=== PATIENT | male | born 1960 | race Caucasian/White ===

== ENCOUNTER → 2016-04-23 13:53 | Emergency (ER) | payer OTHER ==
[~2016-04-23 13:53] MED LIST: Ketorolac INJ* 60 MG/2 ML VIAL IM ONE
[2016-04-23 14:04] VITALS: BP 143/89
--- NOTE | 2016-04-23 15:09 | ED ---
Throat Pain/Nasal Congestion - HPI Summary HPI Summary: Patient has a broken lower molar that became painful four days ago. He thought it would improve but it has become progressively more painful. He went to [facility] yesterday and was given pain medication and told to follow-up with his dentist. He has tried using the Percocet he was given, as well as some old hydrocodone he had at home, without relief. He denies fever or chills. He has also tried ora -gel and ibuprofen. - History of Current Complaint Chief Complaint: EDDentalPain Time Seen by Provider: 04/23/16 14:34 Hx Obtained From: Patient Onset/Duration: Gradual Onset Severity: Severe Associated Signs And Symptoms: Positive: Negative Cough: None - Allergies/Home Medications Allergies/Adverse Reactions: Allergies Allergy/AdvReac Type Severity Reaction Status Date / Time No Known Allergies Allergy Verified 04/23/16 13:58 PMH/Surg Hx/FS Hx/Imm Hx Cardiovascular History: Reports: Hx Hypertension - Surgical History Surgery Procedure, Year, and Place: sebaceous cysts removed Infectious Disease History: No Infectious Disease History: Denies: History Other Infectious Disease, Traveled Outside the in Last 30 Days - Family History Known Family History: Positive: Cardiac Disease, Hypertension - Social History Occupation: Employed Full-time Lives: With Family Alcohol Use: Rare Substance Use Type: Reports: None Smoking Status (MU): Former Smoker Review of Systems Negative: Fever, Chills Positive: Dental Pain. Negative: Sore Throat, Ear Ache All Other Systems Reviewed And Are Negative: Yes Physical Exam Triage Information Reviewed: Yes Vital Signs On Initial Exam: Initial Vitals Temp Pulse Resp BP Pulse Ox 100.4 F 86 18 143/89 100 04/23/16 13:58 04/23/16 13:58 04/23/16 13:58 04/23/16 13:58 04/23/16 13:58 Vital Signs Reviewed: Yes Appearance: Positive: Well-Appearing, Well-Nourished, Pain Distress Skin: Positive: Warm, Skin Color Reflects Adequate Perfusion, Dry, Soft Head/Face: Positive: Normal Head/Face Inspection Eyes: Positive: EOMI, CINDY, Conjunctiva Clear ENT: Positive: Hearing grossly normal, Pharynx normal Dental: Positive: Percussion Tenderness @ - left lower molar, Gross Decay/ Caries @ - left lower molar, Dental Fracture @ - left lower molar Neck: Positive: Supple, Nontender, No Lymphadenopathy Respiratory/Lung Sounds: Positive: Breath Sounds Present Cardiovascular: Positive: RRR Neurological: Positive: Sensory/Motor Intact, Alert, Oriented to Person Place, Time, NV Bundle Intact Distally Psychiatric: Positive: Affect/Mood Appropriate AVPU Assessment: Alert Diagnostics - Vital Signs Vital Signs Temp Pulse Resp BP Pulse Ox 04/23/16 13:58 100.4 F 86 18 143/89 100 - Laboratory Lab Statement: Any lab studies that have been ordered have been reviewed, and results considered in the medical decision making process. Re-Evaluation - Re-Evaluation First Eval Re-Evaluation Time: 15:30 Change: Improved Comment: patient pain has decreased with Toradol and oral lidocaine. He declined dental nerve block. EENT Course/Dx - Differential Diagnoses Differential Diagnoses: Dental Abscess, Dental Caries, Fractured Tooth, Odontogenic Pain, Periodontic Abscess, Periodontic Disease - Diagnoses Provider Diagnoses: Pain, dental Discharge - Discharge Plan Condition: Stable Disposition: HOME Patient Education Materials: Toothache (ED) Referrals: Bozena Morgan MD [Primary Care Provider] - Additional Instructions: Please call your dentist [facility] for an appointment tomorrow. Use your pain mediation in combination with the oral get provided.
== END | disposition home or self-care (01) ==
LOC: ED 13:53
DX: K08.89 Other specified disorders of teeth and supporting structures (principal); I10 Essential (primary) hypertension; Z87.891 Personal history of nicotine dependence
CPT/HCPCS: 96372; 99281; J1885

== ENCOUNTER 2018-03-08 14:29 | Observation (INO) | payer BC, OTHER ==
[2018-03-08 15:34] LABS: ABS Basophils 0 10^3/ul (0-0.2); ABS Eosinophils 0.1 10^3/ul (0-0.6); ABS Lymphocytes 1.1 10^3/ul (1.0-4.8); ABS Monocytes 0.8 10^3/ul (0-0.8); ABS Neutrophils 5.5 10^3/ul (1.5-7.7); ABS Nucleated RBC 0 10^3/ul; Eosinophil % 1.4 %; Hematocrit 43 % (42-52); Hemoglobin 14.4 g/dl (14.0-18.0); Mean Corpuscular HGB Conc 34 g/dl (31-36); Mean Corpuscular Hemoglobin 29 pg (27-31); Mean Corpuscular Volume 87 fL (80-94); Mean Platelet Volume 9.2 fL (7.4-10.4); Nucleated Red Blood Cells % 0; Platelet Count 227 10^3/ul (150-450); Red Blood Count 4.93 10^6/ul (4.00-5.40); Red Cell Distribution Width 14 % (10.5-15); White Blood Count 7.5 10^3/ul (3.5-10.8)
[2018-03-08 15:41] LABS: Activated Partial Thrombo Time 30.1 seconds (26.0-36.3)
[2018-03-08 15:52] LABS: Albumin 4.2 g/dL (3.2-5.2); Albumin/Globulin Ratio 1.5 (1-3); BUN/Creatinine Ratio 23.2 (8-20); EGFR Non-African American 81.7 (>60); Globulin 2.8 g/dL (2-4); Potassium 4.3 mmol/L (3.5-5.0); Total Bilirubin 0.5 mg/dL (0.2-1.0)
[2018-03-08 16:15] LABS: Urine Appearance Clear; Urine Bilirubin Negative (Negative); Urine Blood Negative (Negative); Urine Color Amber; Urine Glucose Negative (Negative); Urine Ketones Negative (Negative); Urine Nitrite Negative (Negative); Urine Protein Negative (Negative); Urine Specific Gravity 1.019 (1.010-1.030); Urine Urobilinogen Negative (Negative)
[2018-03-08 16:39] LABS: TSH (Thyroid Stimulating Horm) 0.87 mcIU/mL (0.34-5.60)
[2018-03-08 16:43] LABS: Free T4 0.92 ng/dL (0.61-1.12)
[2018-03-08] MEDS ORDERED: Acetaminophen TAB* 325 MG PO PRN (17:06)
[2018-03-08] MEDS ORDERED: Ondansetron INJ* 2 MG/ML VIAL IV PRN (17:06)
[2018-03-08] MEDS ORDERED: Nitroglycerin TAB 0.4 MG* 0.4 MG TAB SL PRN (17:06)
--- NOTE | 2018-03-08 17:08 | ED ---
Palpitations / Dysrhythmia - HPI Summary HPI Summary: The pt is a 57 year old male who is presenting to the [facility] via ambulance with a chief complaint of palpitations. The pt earlier today checked his pulse using an Iphone cira and stated that his pulse rate was 115 to 120 bpm. He later checked the pulses by placing his fingers to his neck and felt as if his pulse rate was high. He states that he was feeling "off" today in general as well as "jittery." The pt also reports of dizziness and fatigue. He has taken aspirin and denies any history of a blood clot. 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 Both of his occupations require the patient to "sit down" and be relatively inactive. SHx involves no alcohol use and no tobacco use. Medications were reported and stated to be for the patient's HTN. He denies DM, high cholesterol levels and hx of [place]. Symptoms are aggravated by nothing and alleviated by nothing. The pain is reported to be 0/10. - History of Current Complaint Chief Complaint: EDChestPainROMI Time Seen by Provider: 03/08/18 15:01 Hx Obtained From: Patient Onset/Duration: Lasting Hours - since earlier 03/08/18 Character: Fast Aggravating: Nothing Alleviating: Nothing Associated Signs & Symptoms: Dizzy - Allergy/Home Medications Allergies/Adverse Reactions: Allergies Allergy/AdvReac Type Severity Reaction Status Date / Time No Known Allergies Allergy Verified 04/23/16 13:58 Home Medications: Home Medications Tamsulosin CAP* [Flomax CAP*] 0.4 mg PO DAILY 03/08/18 [History Confirmed ] PMH/Surg Hx/FS Hx/Imm Hx Endocrine/Hematology History: Reports: Other Endocrine/Hematological Disorders - Negative Hypercholesteremia Denies: Hx Diabetes Cardiovascular History: Reports: Hx Hypertension Denies: Hx Myocardial Infarction Opthamlomology History: Denies: Hx Legally Blind EENT History: Denies: Hx Deafness - Surgical History Surgery Procedure, Year, and Place: sebaceous cysts removed Infectious Disease History: No Infectious Disease History: Denies: History Other Infectious Disease, Traveled Outside the [place] in Last 30 Days - Family History Known Family History: Positive: Cardiac Disease, Hypertension - Social History Occupation: Employed Full-time Alcohol Use: Rare Substance Use Type: Reports: None Smoking Status (MU): Former Smoker Review of Systems Positive: Fatigue Eyes: Negative ENT: Negative Positive: Palpitations Respiratory: Negative Gastrointestinal: Negative Genitourinary: Negative Musculoskeletal: Negative Skin: Negative Neurological: Other - Dizziness Psychological: Normal All Other Systems Reviewed And Are Negative: Yes Physical Exam - Summary Physical Exam Summary: GENERAL: Patient is a well-developed and nourished Male who is lying comfortable in the stretcher. Patient is not in any acute respiratory distress. HEAD AND FACE: Normocephalic EYES: PERRLA, EOMI x 2. EARS: Hearing grossly intact. MOUTH: Oropharynx within normal limits. NECK: Supple, trachea is midline, no adenopathy, no JVD, no carotid bruit. CHEST: Symmetric, no tenderness at palpation LUNGS: Clear to auscultation bilaterally. No wheezing or crackles. CVS: Regular rate and rhythm, S1 and S2 present, no murmurs or gallops appreciated. ABDOMEN: Soft, non-tender. Bowel sounds are normal. No abdominal abnormal pulsations. EXTREMITIES: Full ROM in all major joints, no edema, no cyanosis or clubbing. NEURO: Alert and oriented x 3. No acute neurological deficits. Speech is normal and follows commands. SKIN: Dry and warm Triage Information Reviewed: Yes Vital Signs On Initial Exam: Initial Vitals Temp Pulse Resp BP Pulse Ox 98.5 F 103 15 142/99 97 03/08/18 14:42 03/08/18 14:42 03/08/18 14:42 03/08/18 14:42 03/08/18 14:42 Vital Signs Reviewed: Yes Diagnostics - Vital Signs Vital Signs Temp Pulse Resp BP Pulse Ox 03/08/18 15:43 86 23 140/95 98 03/08/18 15:12 94 18 148/105 99 03/08/18 15:00 90 19 97 03/08/18 14:43 89 22 142/99 97 03/08/18 14:42 98.5 F 103 15 142/99 97 - Laboratory Lab Results: Lab Results 03/08/18 03/08/18 03/08/18 Range/Units 15:24 15:24 15:24 WBC 7.5 (3.5-10.8) 10^3/ul RBC 4.93 (4.00-5.40) 10^6/ul Hgb 14.4 (14.0-18.0) g/dl Hct 43 (42-52) % MCV 87 (80-94) fL MCH 29 (27-31) pg MCHC 34 (31-36) g/dl RDW 14 (10.5-15) % Plt Count 227 (150-450) 10^3/ul MPV 9.2 (7.4-10.4) fL Neut % (Auto) 73.4 % Lymph % (Auto) 14.0 % [place] % (Auto) 10.6 % Eos % (Auto) 1.4 % Baso % (Auto) 0.6 % Absolute Neuts (auto) 5.5 (1.5-7.7) 10^3/ul Absolute Lymphs (auto) 1.1 (1.0-4.8) 10^3/ul Absolute Monos (auto) 0.8 (0-0.8) 10^3/ul Absolute Eos (auto) 0.1 (0-0.6) 10^3/ul Absolute Basos (auto) 0 (0-0.2) 10^3/ul Absolute Nucleated RBC 0 10^3/ul Nucleated RBC % 0 APTT (26.0-36.3) seconds D-Dimer, Quantitative (Less Than 230) ng/mL Sodium 139 (135-145) mmol/L Potassium 4.3 (3.5-5.0) mmol/L Chloride 105 (101-111) mmol/L Carbon Dioxide 30 (22-32) mmol/L Anion Gap 4 (2-11) mmol/L BUN 22 (6-24) mg/dL Creatinine 0.95 (0.67-1.17) mg/dL Est GFR ( Amer) 98.9 (>60) Est GFR (Non-Af Amer) 81.7 (>60) BUN/Creatinine Ratio 23.2 H (8-20) Glucose 109 H (70-100) mg/dL Lactic Acid 1.2 (0.5-2.0) mmol/L Calcium 9.0 (8.6-10.3) mg/dL Total Bilirubin 0.50 (0.2-1.0) mg/dL AST 19 (13-39) U/L ALT 27 (7-52) U/L Alkaline Phosphatase 57 (34-104) U/L Troponin I 0.02 (<0.04) ng/mL B-Natriuretic Peptide (<=100) pg/mL Total Protein 7.0 (6.4-8.9) g/dL Albumin 4.2 (3.2-5.2) g/dL Globulin 2.8 (2-4) g/dL Albumin/Globulin Ratio 1.5 (1-3) TSH (0.34-5.60) mcIU/mL Free T4 (0.61-1.12) ng/dL Urine Color Urine Appearance Urine pH (5-9) Ur Specific [place] (1.010-1.030) Urine Protein (Negative) Urine Ketones (Negative) Urine Blood (Negative) Urine Nitrate (Negative) Urine Bilirubin (Negative) Urine Urobilinogen (Negative) Ur Leukocyte Esterase (Negative) Urine Glucose (Negative) 03/08/18 03/08/18 03/08/18 Range/Units 15:24 15:25 15:25 WBC (3.5-10.8) 10^3/ul RBC (4.00-5.40) 10^6/ul Hgb (14.0-18.0) g/dl Hct (42-52) % MCV (80-94) fL MCH (27-31) pg MCHC (31-36) g/dl RDW (10.5-15) % Plt Count (150-450) 10^3/ul MPV (7.4-10.4) fL Neut % (Auto) % Lymph % (Auto) % [place] % (Auto) % Eos % (Auto) % Baso % (Auto) % Absolute Neuts (auto) (1.5-7.7) 10^3/ul Absolute Lymphs (auto) (1.0-4.8) 10^3/ul Absolute Monos (auto) (0-0.8) 10^3/ul Absolute Eos (auto) (0-0.6) 10^3/ul Absolute Basos (auto) (0-0.2) 10^3/ul Absolute Nucleated RBC 10^3/ul Nucleated RBC % APTT 30.1 (26.0-36.3) seconds D-Dimer, Quantitative < 200 (Less Than 230) ng/mL Sodium (135-145) mmol/L Potassium (3.5-5.0) mmol/L Chloride (101-111) mmol/L Carbon Dioxide (22-32) mmol/L Anion Gap (2-11) mmol/L BUN (6-24) mg/dL Creatinine (0.67-1.17) mg/dL Est GFR ( Amer) (>60) Est GFR (Non-Af Amer) (>60) BUN/Creatinine Ratio (8-20) Glucose (70-100) mg/dL Lactic Acid (0.5-2.0) mmol/L Calcium (8.6-10.3) mg/dL Total Bilirubin (0.2-1.0) mg/dL AST (13-39) U/L ALT (7-52) U/L Alkaline Phosphatase (34-104) U/L Troponin I (<0.04) ng/mL B-Natriuretic Peptide 18 (<=100) pg/mL Total Protein (6.4-8.9) g/dL Albumin (3.2-5.2) g/dL Globulin (2-4) g/dL Albumin/Globulin Ratio (1-3) TSH 0.87 (0.34-5.60) mcIU/mL Free T4 0.92 (0.61-1.12) ng/dL Urine Color Urine Appearance Urine pH (5-9) Ur Specific [place] (1.010-1.030) Urine Protein (Negative) Urine Ketones (Negative) Urine Blood (Negative) Urine Nitrate (Negative) Urine Bilirubin (Negative) Urine Urobilinogen (Negative) Ur Leukocyte Esterase (Negative) Urine Glucose (Negative) 03/08/18 Range/Units 15:57 WBC (3.5-10.8) 10^3/ul RBC (4.00-5.40) 10^6/ul Hgb (14.0-18.0) g/dl Hct (42-52) % MCV (80-94) fL MCH (27-31) pg MCHC (31-36) g/dl RDW (10.5-15) % Plt Count (150-450) 10^3/ul MPV (7.4-10.4) fL Neut % (Auto) % Lymph % (Auto) % [place] % (Auto) % Eos % (Auto) % Baso % (Auto) % Absolute Neuts (auto) (1.5-7.7) 10^3/ul Absolute Lymphs (auto) (1.0-4.8) 10^3/ul Absolute Monos (auto) (0-0.8) 10^3/ul Absolute Eos (auto) (0-0.6) 10^3/ul Absolute Basos (auto) (0-0.2) 10^3/ul Absolute Nucleated RBC 10^3/ul Nucleated RBC % APTT (26.0-36.3) seconds D-Dimer, Quantitative (Less Than 230) ng/mL Sodium (135-145) mmol/L Potassium (3.5-5.0) mmol/L Chloride (101-111) mmol/L Carbon Dioxide (22-32) mmol/L Anion Gap (2-11) mmol/L BUN (6-24) mg/dL Creatinine (0.67-1.17) mg/dL Est GFR ( Amer) (>60) Est GFR (Non-Af Amer) (>60) BUN/Creatinine Ratio (8-20) Glucose (70-100) mg/dL Lactic Acid (0.5-2.0) mmol/L Calcium (8.6-10.3) mg/dL Total Bilirubin (0.2-1.0) mg/dL AST (13-39) U/L ALT (7-52) U/L Alkaline Phosphatase (34-104) U/L Troponin I (<0.04) ng/mL B-Natriuretic Peptide (<=100) pg/mL Total Protein (6.4-8.9) g/dL Albumin (3.2-5.2) g/dL Globulin (2-4) g/dL Albumin/Globulin Ratio (1-3) TSH (0.34-5.60) mcIU/mL Free T4 (0.61-1.12) ng/dL Urine Color Isabel Urine Appearance Clear Urine pH 7.0 (5-9) Ur Specific [place] 1.019 (1.010-1.030) Urine Protein Negative (Negative) Urine Ketones Negative (Negative) Urine Blood Negative (Negative) Urine Nitrate Negative (Negative) Urine Bilirubin Negative (Negative) Urine Urobilinogen Negative (Negative) Ur Leukocyte Esterase Negative (Negative) Urine Glucose Negative (Negative) Result Diagrams: 03/09/18 05:17 03/09/18 05:17 Lab Statement: Any lab studies that have been ordered have been reviewed, and results considered in the medical decision making process. - Radiology Chest X-ray Radiology Interpretation Completed By: Radiologist Summary of Radiographic Findings: CXR reveals, per radiologist, NO ACTIVE CARDIOPULMONARY DISEASE. ED physician has reviewed this radiology report. - EKG 1537 Cardiac Rate: NL - 86 bpm EKG Rhythm: Sinus Rhythm Summary of EKG Findings: EKG reveals at 1537: 86 bpm NSR. Early R wave transition Course/Dx - Course Course Of Treatment: The pt is a 57 year old male who is presenting to the [facility] with a chief complaint of heart palpitations. Lab results revealed unremarkable findings. D-dimer was normal. The workup was unremarkable as well. He received a Chest X-ray and EKG as well in the [facility]. We consulted Dr. Briseno and he accepts patient care at 1612 due to the patients risk factors. The dx will be ACS. We discussed the results and the plan with the patient and he agrees with the plan. The patient will be admitted to the [facility]. - Diagnoses Provider Diagnoses: ACS (acute coronary syndrome) - Physician Notifications Discussed Care Of Patient With: John Briseno - Accepts Patient Care Time Discussed With Above Provider: 16:12 Instructed by Provider To: Admit As Observation Discharge - Sign-Out/Discharge Documenting (check all that apply): Patient Departure - Admitted to the [facility] - Discharge Plan Condition: Stable Disposition: ADMITTED TO [facility] - Billing Disposition and Condition Condition: STABLE Disposition: Admitted to [facility] - Attestation Statements Document Initiated by Huber: Yes Documenting Scribe: Doc Kim Provider For Whom Lexiiibe is Documenting (Include Credential): Dr. Mireille Shultzibdale Attestation: Doc Ball scribed for Dr. Mireille Castillo on 03/09/18 at 0919. Scribe Documentation Reviewed: Yes Provider Attestation: The documentation as recorded by the Doc hamm accurately reflects the service I personally performed and the decisions made by , Dr. Mireille Castillo Status of Scribe Document: Viewed
--- NOTE | 2018-03-08 19:38 | HP ---
CC: Dr. Bozena Morgan * ADMISSION HISTORY AND PHYSICAL: DATE OF ADMISSION: 03/08/18. PRIMARY CARE PROVIDER: Dr. Bozena Morgan. MY ATTENDING WHILE IN THE HOSPITAL: Dr. John Briseno.* (DICTATED BY MELA CORONEL) CHIEF COMPLAINT: Palpitations, chest pain. HISTORY OF PRESENT ILLNESS: Mr. Mora is a 57-year-old male with past medical history significant only for hypertension and BPH, who was in his normal state of health this afternoon when suddenly he started developing a feeling of palpitations, which was associated with sweating, presyncope, and slight chest tightness with possible slight shortness of breath as well. 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 The patient had another episode like this approximately 1 week ago where he was just walking in the mall and his heart began to race with his blood pressure going up to about 130. The patient states he did the same thing and his heart rate was also at 130 at this time, but this episode was much more severe. The patient has not had any other episodes like this before. The patient has had episodes of feeling lightheaded while golfing during the summer. The patient has been working every day for several months now and feels like his stress level is pretty high. 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 The patient has no other recent illnesses. No sick contacts. No fevers, chills, nausea, vomiting, abdominal pain, diarrhea or dysuria. The patient is currently asymptomatic and is not feeling any palpitations. Due to concern for chest pain and possible arrhythmia, we were asked to evaluate for admission. The patient denies any orthopnea or swelling in his legs. The patient has noticed a slight decrease in his exercise tolerance, but has no real functional limitations. PAST MEDICAL HISTORY: Hypertension and BPH. PAST SURGICAL HISTORY: None. MEDICATIONS: 1. Lisinopril 10 mg p.o. daily. 2. Amlodipine 10 mg p.o. daily. 3. Flomax 0.4 mg p.o. daily. ALLERGIES: No known drug allergies. FAMILY HISTORY: The patient's mother of CHF at age 85. The patient's father in car accident when he was young. The patient's sister is in good health and alive. SOCIAL HISTORY: The patient never smoked, drank or used illicit drugs. 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 The patient is and has 2 children. REVIEW OF SYSTEMS: A 14-point review of systems has been reviewed and is negative except as above in the HPI. PHYSICAL EXAMINATION GENERAL: The patient is a 57-year-old male who appears stated age, sitting comfortably in bed, in no acute distress. VITAL SIGNS: At the time of evaluation, temperature 98.5, pulse rate 86, respiratory rate 23, oxygen saturation 98% on room air, blood pressure 140/95. HEENT: Head normocephalic, atraumatic. Sclerae anicteric. No conjunctival injection. Nasal mucosa moist. Oral mucosa moist. No oropharyngeal erythema, discharge or exudate. NECK: Supple, nontender. No lymphadenopathy, no carotid bruits auscultated, no JVD. RESPIRATORY: Clear to auscultation bilaterally. No wheezes, rales or rhonchi. Good air exchange bilaterally. CARDIAC: Regular rate and rhythm. No clicks, murmurs, gallops or rubs. Pulses 2+ in the bilateral dorsalis pedis, posterior tibialis, and radial areas. No bilateral lower extremity edema noted. No bilateral calf tenderness. ABDOMEN: Soft, nontender, and nondistended. Bowel sounds present and normoactive in all 4 quadrants. No hepatosplenomegaly. No abdominal bruits auscultated. No hepatojugular reflux. GENITOURINARY: No suprapubic or CVA tenderness. SKIN: Clean, dry, and intact. No rash. NEURO: Cranial nerves II through XII intact. No focal deficits. Alert and oriented x3. PSYCHIATRIC: Pleasant and cooperative. DIAGNOSTIC STUDIES/LAB DATA: White blood cell count 7.5, hemoglobin 14.3, platelet count 227,000. D-dimer less than 200. Sodium 139, potassium 4.3, chloride 105, carbon dioxide 23, anion gap 4, BUN 22, creatinine 0.95, glucose 109, lactic acid 1.2, calcium 9.0. Bilirubin 0.5, AST 19, ALT 27, alkaline phosphatase 57. Troponin I 0.02, BNP 18, protein 7.0, albumin 4.2, globulin 2.8 , TSH 0.87, free T4 of 0.92. Urine unremarkable. Studies: EKG shows normal sinus rhythm. No ST segment changes, rate of 86, QTc of 397. No hypertrophy or enlargement. Compared to previous exam, there are no previous changes. Chest x-ray read as no acute cardiopulmonary disease. ASSESSMENT AND PLAN/IMPRESSION: Mr. Mora is a 57-year-old male with past medical history significant for hypertension and benign prostatic hypertrophy, who presents to the emergency department with an hour and a half of palpitations today with associated chest pain and mild shortness of breath, which is now resolved. The patient is currently asymptomatic. Due to concern for arrhythmia and chest pain, the patient will be admitted to the hospital for rule out myocardial infarction and telemetry monitoring. 1. Palpitations, chest pain. The patient very likely had some form of tachyarrhythmia. The patient confirmed his own blood pressure around 130 while this was happening. The patient had associated chest pain. It is unclear whether the patient had ischemia causing tachyarrhythmia or tachyarrhythmia possibly causing ischemia. The patient will have rule out troponins. The patient will have a repeat EKG in the morning. The patient will have a lipid profile and hemoglobin A1c for risk stratification. The patient should at some point have a stress test, but this need not be done inpatient. The patient has a MARQUES Risk Score of 0. The patient should very likely have a long-term monitor unless his arrhythmia is able to be captured while he is in the hospital. The patient will be monitored on telemetry. The patient will be continued on his home antihypertensives. There is no indication for changing to a rate control agent at this point. There is no indication for anticoagulation as there is no confirmation this is atrial fibrillation. 2. Hypertension. Continue lisinopril and amlodipine. 3. Benign prostatic hypertrophy. Continue tamsulosin. 4. DVT prophylaxis. The patient is a low risk. The patient will have SCDs. 5. FEN. The patient will have a regular unrestricted diet. The patient is not on any fluids. 6. Disposition. The patient will be on observation. TIME SPENT: Approximately 60 minutes were spent on the admission of this patient, 30 of which was spent [id number] with the patient obtaining history and physical and discussing treatment plan. Plan was discussed with my attending, Dr. Darren Briseno, and he is in agreement. MELA CORONEL [id number]/[facility] #: [id number] ALBERTO
[2018-03-09 05:35] LABS: ABS Basophils 0 10^3/ul (0-0.2); ABS Eosinophils 0.2 10^3/ul (0-0.6); ABS Lymphocytes 1.5 10^3/ul (1.0-4.8); ABS Monocytes 0.8 10^3/ul (0-0.8); ABS Neutrophils 3.6 10^3/ul (1.5-7.7); ABS Nucleated RBC 0 10^3/ul; Eosinophil % 2.6 %; Hematocrit 42 % (42-52); Hemoglobin 14.3 g/dl (14.0-18.0); Lymphocyte % 24.3 %; Mean Corpuscular HGB Conc 34 g/dl (31-36); Mean Corpuscular Hemoglobin 30 pg (27-31); Mean Corpuscular Volume 86 fL (80-94); Mean Platelet Volume 8.9 fL (7.4-10.4); Nucleated Red Blood Cells % 0.1; Platelet Count 214 10^3/ul (150-450); Red Blood Count 4.86 10^6/ul (4.00-5.40); Red Cell Distribution Width 14 % (10.5-15)
[2018-03-09 05:50] LABS: BUN/Creatinine Ratio 19.5 (8-20); EGFR Non-African American 90.4 (>60); Magnesium 2.2 mg/dL (1.9-2.7); Potassium 4.1 mmol/L (3.5-5.0)
[2018-03-09] MEDS ORDERED: amLODIPine TAB* 5 MG PO SCH (09:00)
[2018-03-09] MEDS: Aspirin EC TAB* 81 MG TAB.EC PO SCH (09:30)
[2018-03-09] MEDS: amLODIPine TAB* 5 MG PO SCH (09:30)
[2018-03-09] MEDS: Lisinopril TAB* 10 MG PO SCH (09:30)
[2018-03-09] MEDS: Tamsulosin CAP* 0.4 MG PO SCH (09:30)
--- NOTE | 2018-03-09 18:48 | PN ---
Subjective Date of Service: 03/09/18 Interval History: Patient seen today. history obtained from patient. he does report ongoing left sided chest tightness and radiate to shoulder with episodic palpitation that has been occurring more frequently past week at time he measures it of 120- 140's! no acute distress at this time. His risk factor include, hyperglycemia , HTN, Male and over 55. Does not know his biological father. discussed with cardiology given his presentation of chest tightness with his palpitations, I do have high suspicion for CAD. Hence I will order Nuclear stress test and I appreciate their input Past Medical History: Unchanged from Admission Objective Active Medications: Acetaminophen (Tylenol Tab*) 650 mg PO Q6H PRN PRN Reason: FEVER/PAIN Amlodipine Besylate (Norvasc Tab*) 2.5 mg PO DAILY [facility] Last Admin: 03/09/18 09:30 Dose: 2.5 mg Aspirin (Aspirin Ec Tab*) 81 mg PO DAILY [facility] Last Admin: 03/09/18 09:30 Dose: 81 mg Atorvastatin Calcium (Lipitor*) 20 mg PO BEDTIME [facility] Lisinopril (Prinivil Tab*) 10 mg PO DAILY [facility] Last Admin: 03/09/18 09:30 Dose: 10 mg Nitroglycerin (Nitroglycerin Tab 0.4 Mg*) 0.4 mg SL Q5M PRN PRN Reason: ANGINA Ondansetron HCl (Zofran Inj*) 4 mg IV Q6H PRN PRN Reason: NAUSEA Tamsulosin HCl (Flomax Cap*) 0.4 mg PO DAILY [facility] Last Admin: 03/09/18 09:30 Dose: 0.4 mg Vital Signs - 8 hr 03/09/18 11:04 Temperature 97.6 F Pulse Rate 69 Respiratory 16 Rate Blood Pressure 124/72 (mmHg) O2 Sat by Pulse 100 Oximetry Oxygen Devices in Use Now: None Appearance: Awake, alert. no distress. Eyes: No Scleral Icterus, PERRLA Ears/Nose/Mouth/Throat: NL Teeth, Lips, Gums, Clear Oropharnyx Neck: NL Appearance and Movements; NL JVP, Trachea Midline Respiratory: Symmetrical Chest Expansion and Respiratory Effort, Clear to Auscultation Cardiovascular: NL Sounds; No Murmurs; No JVD, RRR Abdominal: NL Sounds; No Tenderness; No Distention Extremities: No Edema Skin: No Rash or Ulcers Neurological: Alert and Oriented x 3 Result Diagrams: 03/09/18 05:17 03/09/18 05:17 Additional Lab and Data: Lab Results 03/08/18 03/08/18 03/08/18 Range/Units 15:24 15:24 15:24 WBC 7.5 (3.5-10.8) 10^3/ul RBC 4.93 (4.00-5.40) 10^6/ul Hgb 14.4 (14.0-18.0) g/dl Hct 43 (42-52) % MCV 87 (80-94) fL MCH 29 (27-31) pg MCHC 34 (31-36) g/dl RDW 14 (10.5-15) % Plt Count 227 (150-450) 10^3/ul MPV 9.2 (7.4-10.4) fL Neut % (Auto) 73.4 % Lymph % (Auto) 14.0 % [place] % (Auto) 10.6 % Eos % (Auto) 1.4 % Baso % (Auto) 0.6 % Absolute Neuts (auto) 5.5 (1.5-7.7) 10^3/ul Absolute Lymphs (auto) 1.1 (1.0-4.8) 10^3/ul Absolute Monos (auto) 0.8 (0-0.8) 10^3/ul Absolute Eos (auto) 0.1 (0-0.6) 10^3/ul Absolute Basos (auto) 0 (0-0.2) 10^3/ul Absolute Nucleated RBC 0 10^3/ul Nucleated RBC % 0 APTT (26.0-36.3) seconds D-Dimer, Quantitative (Less Than 230) ng/mL Sodium 139 (135-145) mmol/L Potassium 4.3 (3.5-5.0) mmol/L Chloride 105 (101-111) mmol/L Carbon Dioxide 30 (22-32) mmol/L Anion Gap 4 (2-11) mmol/L BUN 22 (6-24) mg/dL Creatinine 0.95 (0.67-1.17) mg/dL Est GFR ( Amer) 98.9 (>60) Est GFR (Non-Af Amer) 81.7 (>60) BUN/Creatinine Ratio 23.2 H (8-20) Glucose 109 H (70-100) mg/dL Lactic Acid 1.2 (0.5-2.0) mmol/L Calcium 9.0 (8.6-10.3) mg/dL Total Bilirubin 0.50 (0.2-1.0) mg/dL AST 19 (13-39) U/L ALT 27 (7-52) U/L Alkaline Phosphatase 57 (34-104) U/L Troponin I 0.02 (<0.04) ng/mL B-Natriuretic Peptide (<=100) pg/mL Total Protein 7.0 (6.4-8.9) g/dL Albumin 4.2 (3.2-5.2) g/dL Globulin 2.8 (2-4) g/dL Albumin/Globulin Ratio 1.5 (1-3) TSH (0.34-5.60) mcIU/mL Free T4 (0.61-1.12) ng/dL Urine Color Urine Appearance Urine pH (5-9) Ur Specific [place] (1.010-1.030) Urine Protein (Negative) Urine Ketones (Negative) Urine Blood (Negative) Urine Nitrate (Negative) Urine Bilirubin (Negative) Urine Urobilinogen (Negative) Ur Leukocyte Esterase (Negative) Urine Glucose (Negative) 03/08/18 03/08/18 03/08/18 Range/Units 15:24 15:25 15:25 WBC (3.5-10.8) 10^3/ul RBC (4.00-5.40) 10^6/ul Hgb (14.0-18.0) g/dl Hct (42-52) % MCV (80-94) fL MCH (27-31) pg MCHC (31-36) g/dl RDW (10.5-15) % Plt Count (150-450) 10^3/ul MPV (7.4-10.4) fL Neut % (Auto) % Lymph % (Auto) % [place] % (Auto) % Eos % (Auto) % Baso % (Auto) % Absolute Neuts (auto) (1.5-7.7) 10^3/ul Absolute Lymphs (auto) (1.0-4.8) 10^3/ul Absolute Monos (auto) (0-0.8) 10^3/ul Absolute Eos (auto) (0-0.6) 10^3/ul Absolute Basos (auto) (0-0.2) 10^3/ul Absolute Nucleated RBC 10^3/ul Nucleated RBC % APTT 30.1 (26.0-36.3) seconds D-Dimer, Quantitative < 200 (Less Than 230) ng/mL Sodium (135-145) mmol/L Potassium (3.5-5.0) mmol/L Chloride (101-111) mmol/L Carbon Dioxide (22-32) mmol/L Anion Gap (2-11) mmol/L BUN (6-24) mg/dL Creatinine (0.67-1.17) mg/dL Est GFR ( Amer) (>60) Est GFR (Non-Af Amer) (>60) BUN/Creatinine Ratio (8-20) Glucose (70-100) mg/dL Lactic Acid (0.5-2.0) mmol/L Calcium (8.6-10.3) mg/dL Total Bilirubin (0.2-1.0) mg/dL AST (13-39) U/L ALT (7-52) U/L Alkaline Phosphatase (34-104) U/L Troponin I (<0.04) ng/mL B-Natriuretic Peptide 18 (<=100) pg/mL Total Protein (6.4-8.9) g/dL Albumin (3.2-5.2) g/dL Globulin (2-4) g/dL Albumin/Globulin Ratio (1-3) TSH 0.87 (0.34-5.60) mcIU/mL Free T4 0.92 (0.61-1.12) ng/dL Urine Color Urine Appearance Urine pH (5-9) Ur Specific [place] (1.010-1.030) Urine Protein (Negative) Urine Ketones (Negative) Urine Blood (Negative) Urine Nitrate (Negative) Urine Bilirubin (Negative) Urine Urobilinogen (Negative) Ur Leukocyte Esterase (Negative) Urine Glucose (Negative) 03/08/18 Range/Units 15:57 WBC (3.5-10.8) 10^3/ul RBC (4.00-5.40) 10^6/ul Hgb (14.0-18.0) g/dl Hct (42-52) % MCV (80-94) fL MCH (27-31) pg MCHC (31-36) g/dl RDW (10.5-15) % Plt Count (150-450) 10^3/ul MPV (7.4-10.4) fL Neut % (Auto) % Lymph % (Auto) % [place] % (Auto) % Eos % (Auto) % Baso % (Auto) % Absolute Neuts (auto) (1.5-7.7) 10^3/ul Absolute Lymphs (auto) (1.0-4.8) 10^3/ul Absolute Monos (auto) (0-0.8) 10^3/ul Absolute Eos (auto) (0-0.6) 10^3/ul Absolute Basos (auto) (0-0.2) 10^3/ul Absolute Nucleated RBC 10^3/ul Nucleated RBC % APTT (26.0-36.3) seconds D-Dimer, Quantitative (Less Than 230) ng/mL Sodium (135-145) mmol/L Potassium (3.5-5.0) mmol/L Chloride (101-111) mmol/L Carbon Dioxide (22-32) mmol/L Anion Gap (2-11) mmol/L BUN (6-24) mg/dL Creatinine (0.67-1.17) mg/dL Est GFR ( Amer) (>60) Est GFR (Non-Af Amer) (>60) BUN/Creatinine Ratio (8-20) Glucose (70-100) mg/dL Lactic Acid (0.5-2.0) mmol/L Calcium (8.6-10.3) mg/dL Total Bilirubin (0.2-1.0) mg/dL AST (13-39) U/L ALT (7-52) U/L Alkaline Phosphatase (34-104) U/L Troponin I (<0.04) ng/mL B-Natriuretic Peptide (<=100) pg/mL Total Protein (6.4-8.9) g/dL Albumin (3.2-5.2) g/dL Globulin (2-4) g/dL Albumin/Globulin Ratio (1-3) TSH (0.34-5.60) mcIU/mL Free T4 (0.61-1.12) ng/dL Urine Color [place] Urine Appearance Clear Urine pH 7.0 (5-9) Ur Specific [place] 1.019 (1.010-1.030) Urine Protein Negative (Negative) Urine Ketones Negative (Negative) Urine Blood Negative (Negative) Urine Nitrate Negative (Negative) Urine Bilirubin Negative (Negative) Urine Urobilinogen Negative (Negative) Ur Leukocyte Esterase Negative (Negative) Urine Glucose Negative (Negative) Assess/Plan/Problems-Billing Assessment: 57 year old male admitted for chest pain ACS rule out - Patient Problems (1) Chest pain Current Visit: Yes Status: Acute Code(s): R07.9 - CHEST PAIN, UNSPECIFIED SNOMED Code(s): 86414704 Comment: - Admit to tele. Trop negative - Will follow up echo and will obtain Nuclear stress tesst - Cardiology consult called (2) Palpitations Current Visit: Yes Status: Acute Code(s): R00.2 - PALPITATIONS SNOMED Code (s): 63513114 Comment: - Will obtain nuclear stress test - cardiology consult (3) Hyperlipidemia Current Visit: Yes Status: Acute Code(s): E78.5 - HYPERLIPIDEMIA, UNSPECIFIED SNOMED Code(s): 58800427 Comment: Will start lipitor 20 with LDL of 144 (4) Hypertension Current Visit: Yes Status: Acute Code(s): I10 - ESSENTIAL (PRIMARY) HYPERTENSION SNOMED Code(s): 00327691 Comment: - Continue amlodipine 2.5 mg daily, and lisinopril 10 mg daily (5) DVT prophylaxis Current Visit: Yes Status: Acute Code(s): SHI5864 - SNOMED Code(s): 196712609 Comment: Heparin SQ
--- NOTE | 2018-03-09 19:00 | CONS ---
CC: Hospitalist Service; Dr. Morgan; Dr. Morton CARDIOLOGY CONSULTATION: DATE OF CONSULT: 03/09/18 HISTORY OF PRESENT ILLNESS: I was asked by hospitalist service to see this 57-year- old male patient , who presented to the hospital with symptoms of chest pain, tightness, and tachycardia. He was brou ght in by ambulance. 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 He does have risk factors associated including hy pertension, hyperlipidemia. He never had history of any congestive heart failure. No coronary arter y disease. No history of myocardial infarction. He gives no history of smoking. He said a week ago or so, he had some palpitations and some tachycardia, but yesterday he had an episode of tachycardia , fluttering, palpitation and then he had some chest tightness. He said the whole episode lasted for about 1 hour. He felt near syncope, but he did not pass out. He was brought in by the ambulance to the emergency room, subsequently he was hospitalized. He has no symptoms of chest pain at the [facility]. His troponins x3 are negative. His EKG did not show any acute ST-T abnormalities. He gives no f ever, no chills, no nausea, no vomiting, no hematochezia, no skin rash, no abdominal pain, no syncope , no swelling in the lower extremities. No history of congestive heart failure. No diabetes. He do es have history of systemic arterial hypertension and hyperlipidemia. His review of all other system s essentially is negative. PAST MEDICAL HISTORY: Include history of hypertension and benign prostatic hypertrophy. PAST SURGICAL HISTORY: None. MEDICATIONS: As an outpatient include: 1. Lisinopril 10 mg daily. 2. Amlodipine 10 mg daily. 3. Flomax 0.4 mg daily. His medications as an inpatient include: 1. Tylenol 650 mg p.o. q.6 hours. 2. Norvasc 2.5 mg daily. 3. Aspirin 81 mg daily. 4. Lisinopril 10 mg daily. 5. Nitroglycerin 0.4 mg sublingual p.r.n. 6. Flomax 0.4 mg daily. ALLERGIES: None. FAMILY HISTORY: No family history of premature CAD. SOCIAL HISTORY: He gives no history of smoking. No drinking. No history of illicit drug use. REVIEW OF SYSTEMS: His review of all other systems essentially is negative. PHYSICAL EXAM: He is awake, alert, and oriented. He is not in acute distress. Vitals: Blood pressu re 124/72; pulse 70, sinus rhythm; temperature 97.6, respiratory rate 16. Head and Neck exam: Normo cephalic, atraumatic head. Ears, Nose, and Throat: Essentially benign. Neck: Supple. JVP is not elevated. No carotid bruit. No masses in the neck are appreciated. Chest: Clear to auscultation. No rales, no wheeze, no added sounds appreciated. Heart: Normal. S1 and S2. No added sounds, no g allops, no rubs. Abdomen: Benign. Positive bowel sounds. Extremities: No edema, no cyanosis, no clubbing. Skin exam is normal. Psych: Normal affect and mood. FINANCIAL PLANNING CONSULTANT: No focal deficits appreciated . DIAGNOSTIC STUDIES/LAB DATA: His white blood cell is 6, hemoglobin 14.3, hematocrit 42, and platelet s 214. His chemistry showed sodium 138, potassium 4.1, total CO2 of 27, BUN 17, and creatinine 0.87. LFTs normal. Troponin 0.02, 0.02, and 0.02. BNP was only 18. Triglycerides 61, total cholesterol 197, LDL 144, HDL 41. TSH and T4 are normal. His EKG showed him to be in normal sinus rhythm with a heart rate of 69 beats per minute. There is n o acute ST-T changes for ischemia. Nonspecific T-wave abnormality probably. IMPRESSION: The patient is a 57-year-old male patient with: 1. Symptoms of chest pain, palpitation and tachycardia to be further evaluated. 2. Systemic arterial hypertension. 3. Hyperlipidemia. 4. Benign prostatic hypertrophy. PLAN: Definitely, this patient has some risk factors for CAD as outlined above. He was ruled out for myocardial infarction. He feels stable at the present time. I [facility]. I think risk stratifying him is important based on his symptoms and risk factors. We w ill obtain nuclear Myoview stress test on Sunday morning. I understand an echocardiogram was ordered for this patient to evaluate his left ventricular systolic function and wall motion, any abnormality and any significant valvular disease. He is to avoid significant alcohol, caffeinated drinks, and s timulants. He is to have low-salt, low-fat diet. He is to have physical activity as tolerated. He i s to attempt to lose weight. He is to be followed up closely and we will make further recommendation s accordingly. I answered all his concerns and questions up to his satisfaction. Thank you very much for asking us to participate in the care of this patient. [id number]/[facility] #: [id number]
[2018-03-09] MEDS: Atorvastatin* 20 MG TAB PO SCH (21:46)
[2018-03-09] MEDS: Heparin VIAL(*) 5000 UNITS/ML VIAL (FIVE THOUSAND) SUBCUT SCH (21:49)
[2018-03-10 06:45] LABS: Activated Partial Thrombo Time 30.1 seconds (26.0-36.3); INR 0.9 (0.77-1.02)
[2018-03-10 07:06] LABS: Calcium 9.3 mg/dL (8.6-10.3); Magnesium 2.1 mg/dL (1.9-2.7); Potassium 4.3 mmol/L (3.5-5.0)
[2018-03-10 07:12] LABS: BUN/Creatinine Ratio 22.2 (8-20)
[2018-03-10] MEDS: Heparin VIAL(*) 5000 UNITS/ML VIAL (FIVE THOUSAND) SUBCUT SCH ×3 (07:13→21:57)
[2018-03-10] MEDS: Lisinopril TAB* 10 MG PO SCH (08:24)
[2018-03-10] MEDS: Tamsulosin CAP* 0.4 MG PO SCH (08:24)
[2018-03-10] MEDS: Aspirin EC TAB* 81 MG TAB.EC PO SCH (08:24)
[2018-03-10] MEDS: amLODIPine TAB* 5 MG PO SCH (08:25)
--- NOTE | 2018-03-10 11:17 | ECHO ---
Patient: JULIANA GARCIA [facility] Rec#: [id number] : 1960 Date: 03/10/2018 Age: 57y Height: 173 cm / 68.1 in Weight: 80 kg / 176.3 lbs Sex: M BSA: 1.94 Room#: [facility] Admit Date#: 03/09/2018 Type: Inpatient Referring: Simón Rao Reading: Miguel A Morton MD Security Guard Supervisor: Eva Davis RDCS CC: Bozena Morgan MD Transthoracic Echocardiogram Indication: CP BP: 136/85 HR: 83 Rhythm: NSR Findings History: HTN,HLD,+ family history. Left Ventricle: The left ventricular chamber size is normal. Posterior wall hypertrophy is observed. The estimated ejection fraction is 60-65%. There is no consistent Doppler evidence of clinically significant diastolic dysfunction. Left Atrium: The left atrial chamber size is normal. Right Ventricle: The right ventricular cavity size is normal. The right ventricular global systolic function is normal. Right Atrium: The right atrial cavity size is normal. Aortic Valve: The aortic valve is trileaflet. There is no evidence of aortic regurgitation. There is no evidence of aortic stenosis. Mitral Valve: The mitral valve leaflets are mildly thickened. There is no evidence of mitral regurgitation. There is no evidence of mitral stenosis. Tricuspid Valve: The tricuspid valve leaflets are normal. There is no evidence of tricuspid valve regurgitation. Unable to estimate the right ventricular systolic pressure. There is no tricuspid stenosis. Pulmonic Valve: The pulmonic valve appears normal. There is no evidence of pulmonic regurgitation. There is no pulmonic stenosis. Pericardium: The pericardium appears normal. Aorta: There is no dilatation of the ascending aorta. There is no dilatation of the aortic arch. There is no dilation of the aortic root. Pulmonary Artery: The main pulmonary artery appears normal. Venous: The venous system is not well visualized. Summary: There was not any prior study for comparison. Conclusions The left ventricular chamber size is normal. The estimated ejection fraction is 60-65%. No significant valvular disease Measurements Name Value Normal Range RVIDd (AP) 2D 3.1 cm (0.9 - 2.6) RVDdMajor (2D) 3 cm (2.2 - 4.4) RAd ISD 4CH 4.5 cm (3.4 - 4.9) RA (A4C)W 3.4 cm (2.9 - 4.6) IVSd (2D) 0.9 cm (0.6 - 1) LVPWd (2D) 1.1 cm (0.6 - 1) LVIDd (2D) 3.6 cm (3.6 - 5.4) LVIDs (2D) 2.1 cm - LV FS (2D) 42 % (25 - 45) Aortic Annulus 2 cm (1.4 - 2.6) Ao root diameter (2D) 3 cm (2.1 - 3.5) Ascending Ao 3.3 cm (2.1 - 3.4) LA dimension (AP) 2D 3.4 cm (2.3 - 3.8) LAd ISD 4CH 5.1 cm (2.9 - 5.3) LA ISD 4CH W 3.5 cm (2.5 - 4.5) Name Value Normal Range LA ESV SP 2CH (A/L) 12 ml - LA ESV BP (A/L) index 14 ml/m2 - Name Value Normal Range MV E-wave Vmax 0.6 m/sec - MV deceleration time 278 msec - MV A-wave Vmax 0.6 m/sec - Name Value Normal Range AV Vmax 1.2 m/sec - AV VTI 24 cm - AV peak gradient 5 mmHg - AV mean gradient 4 mmHg - LVOT Vmax 1.1 m/sec - LVOT VTI 23 cm - LVOT peak gradient 5 mmHg - LVOT mean gradient 3 mmHg - Name Value Normal Range PV Vmax 0.9 m/sec - PV peak gradient 3 mmHg -
--- NOTE | 2018-03-10 16:11 | PN ---
Subjective Date of Service: 03/10/18 Interval History: Patient was seen ambulating around the nurse station most of the day. at one time he came to the nurse station stating he was tachycardic. tele showed sinus tachycardia at 115. Patent assessed he was vague about his symptoms. he reports chest tightness "very small" and "queasy"! EKG done revealed sinus rhythm. He was pain free at my assessment. he was reassured. Echo report today normal EF no wall motion abnormalities. Cardiac consult noted and appreciated. for nuclear stress test in am Past Medical History: Unchanged from Admission Objective Active Medications: Acetaminophen (Tylenol Tab*) 650 mg PO Q6H PRN PRN Reason: FEVER/PAIN Last Admin: 03/10/18 06:23 Dose: 650 mg Amlodipine Besylate (Norvasc Tab*) 2.5 mg PO DAILY [facility] Last Admin: 03/10/18 08:25 Dose: 2.5 mg Aspirin (Aspirin Ec Tab*) 81 mg PO DAILY [facility] Last Admin: 03/10/18 08:24 Dose: 81 mg Atorvastatin Calcium (Lipitor*) 20 mg PO BEDTIME [facility] Last Admin: 03/09/18 21:46 Dose: 20 mg Heparin Sodium (Porcine) (Heparin Vial(*)) 5,000 units SUBCUT Q8HR [facility] Last Admin: 03/10/18 12:59 Dose: Not Given Lisinopril (Prinivil Tab*) 10 mg PO DAILY [facility] Last Admin: 03/10/18 08:24 Dose: 10 mg Nitroglycerin (Nitroglycerin Tab 0.4 Mg*) 0.4 mg SL Q5M PRN PRN Reason: ANGINA Ondansetron HCl (Zofran Inj*) 4 mg IV Q6H PRN PRN Reason: NAUSEA Tamsulosin HCl (Flomax Cap*) 0.4 mg PO DAILY [facility] Last Admin: 03/10/18 08:24 Dose: 0.4 mg Vital Signs - 8 hr 03/10/18 03/10/18 08:22 12:25 Temperature 98.2 F 98.3 F Pulse Rate 76 88 Respiratory 16 20 Rate Blood Pressure 128/81 115/80 (mmHg) O2 Sat by Pulse 98 98 Oximetry Oxygen Devices in Use Now: None Appearance: Resting, no distress. Eyes: PERRLA Ears/Nose/Mouth/Throat: NL Teeth, Lips, Gums Neck: NL Appearance and Movements; NL JVP, Trachea Midline Respiratory: Symmetrical Chest Expansion and Respiratory Effort Cardiovascular: RRR Neurological: Alert and Oriented x 3, NL Gait Result Diagrams: 03/09/18 05:17 03/10/18 06:15 Additional Lab and Data: Lab Results 03/08/18 03/08/18 03/08/18 Range/Units 15:24 15:24 15:24 WBC 7.5 (3.5-10.8) 10^3/ul RBC 4.93 (4.00-5.40) 10^6/ul Hgb 14.4 (14.0-18.0) g/dl Hct 43 (42-52) % MCV 87 (80-94) fL MCH 29 (27-31) pg MCHC 34 (31-36) g/dl RDW 14 (10.5-15) % Plt Count 227 (150-450) 10^3/ul MPV 9.2 (7.4-10.4) fL Neut % (Auto) 73.4 % Lymph % (Auto) 14.0 % [place] % (Auto) 10.6 % Eos % (Auto) 1.4 % Baso % (Auto) 0.6 % Absolute Neuts (auto) 5.5 (1.5-7.7) 10^3/ul Absolute Lymphs (auto) 1.1 (1.0-4.8) 10^3/ul Absolute Monos (auto) 0.8 (0-0.8) 10^3/ul Absolute Eos (auto) 0.1 (0-0.6) 10^3/ul Absolute Basos (auto) 0 (0-0.2) 10^3/ul Absolute Nucleated RBC 0 10^3/ul Nucleated RBC % 0 APTT (26.0-36.3) seconds D-Dimer, Quantitative (Less Than 230) ng/mL Sodium 139 (135-145) mmol/L Potassium 4.3 (3.5-5.0) mmol/L Chloride 105 (101-111) mmol/L Carbon Dioxide 30 (22-32) mmol/L Anion Gap 4 (2-11) mmol/L BUN 22 (6-24) mg/dL Creatinine 0.95 (0.67-1.17) mg/dL Est GFR ( Amer) 98.9 (>60) Est GFR (Non-Af Amer) 81.7 (>60) BUN/Creatinine Ratio 23.2 H (8-20) Glucose 109 H (70-100) mg/dL Lactic Acid 1.2 (0.5-2.0) mmol/L Calcium 9.0 (8.6-10.3) mg/dL Total Bilirubin 0.50 (0.2-1.0) mg/dL AST 19 (13-39) U/L ALT 27 (7-52) U/L Alkaline Phosphatase 57 (34-104) U/L Troponin I 0.02 (<0.04) ng/mL B-Natriuretic Peptide (<=100) pg/mL Total Protein 7.0 (6.4-8.9) g/dL Albumin 4.2 (3.2-5.2) g/dL Globulin 2.8 (2-4) g/dL Albumin/Globulin Ratio 1.5 (1-3) TSH (0.34-5.60) mcIU/mL Free T4 (0.61-1.12) ng/dL Urine Color Urine Appearance Urine pH (5-9) Ur Specific [place] (1.010-1.030) Urine Protein (Negative) Urine Ketones (Negative) Urine Blood (Negative) Urine Nitrate (Negative) Urine Bilirubin (Negative) Urine Urobilinogen (Negative) Ur Leukocyte Esterase (Negative) Urine Glucose (Negative) 03/08/18 03/08/18 03/08/18 Range/Units 15:24 15:25 15:25 WBC (3.5-10.8) 10^3/ul RBC (4.00-5.40) 10^6/ul Hgb (14.0-18.0) g/dl Hct (42-52) % MCV (80-94) fL MCH (27-31) pg MCHC (31-36) g/dl RDW (10.5-15) % Plt Count (150-450) 10^3/ul MPV (7.4-10.4) fL Neut % (Auto) % Lymph % (Auto) % [place] % (Auto) % Eos % (Auto) % Baso % (Auto) % Absolute Neuts (auto) (1.5-7.7) 10^3/ul Absolute Lymphs (auto) (1.0-4.8) 10^3/ul Absolute Monos (auto) (0-0.8) 10^3/ul Absolute Eos (auto) (0-0.6) 10^3/ul Absolute Basos (auto) (0-0.2) 10^3/ul Absolute Nucleated RBC 10^3/ul Nucleated RBC % APTT 30.1 (26.0-36.3) seconds D-Dimer, Quantitative < 200 (Less Than 230) ng/mL Sodium (135-145) mmol/L Potassium (3.5-5.0) mmol/L Chloride (101-111) mmol/L Carbon Dioxide (22-32) mmol/L Anion Gap (2-11) mmol/L BUN (6-24) mg/dL Creatinine (0.67-1.17) mg/dL Est GFR ( Amer) (>60) Est GFR (Non-Af Amer) (>60) BUN/Creatinine Ratio (8-20) Glucose (70-100) mg/dL Lactic Acid (0.5-2.0) mmol/L Calcium (8.6-10.3) mg/dL Total Bilirubin (0.2-1.0) mg/dL AST (13-39) U/L ALT (7-52) U/L Alkaline Phosphatase (34-104) U/L Troponin I (<0.04) ng/mL B-Natriuretic Peptide 18 (<=100) pg/mL Total Protein (6.4-8.9) g/dL Albumin (3.2-5.2) g/dL Globulin (2-4) g/dL Albumin/Globulin Ratio (1-3) TSH 0.87 (0.34-5.60) mcIU/mL Free T4 0.92 (0.61-1.12) ng/dL Urine Color Urine Appearance Urine pH (5-9) Ur Specific [place] (1.010-1.030) Urine Protein (Negative) Urine Ketones (Negative) Urine Blood (Negative) Urine Nitrate (Negative) Urine Bilirubin (Negative) Urine Urobilinogen (Negative) Ur Leukocyte Esterase (Negative) Urine Glucose (Negative) 03/08/18 Range/Units 15:57 WBC (3.5-10.8) 10^3/ul RBC (4.00-5.40) 10^6/ul Hgb (14.0-18.0) g/dl Hct (42-52) % MCV (80-94) fL MCH (27-31) pg MCHC (31-36) g/dl RDW (10.5-15) % Plt Count (150-450) 10^3/ul MPV (7.4-10.4) fL Neut % (Auto) % Lymph % (Auto) % [place] % (Auto) % Eos % (Auto) % Baso % (Auto) % Absolute Neuts (auto) (1.5-7.7) 10^3/ul Absolute Lymphs (auto) (1.0-4.8) 10^3/ul Absolute Monos (auto) (0-0.8) 10^3/ul Absolute Eos (auto) (0-0.6) 10^3/ul Absolute Basos (auto) (0-0.2) 10^3/ul Absolute Nucleated RBC 10^3/ul Nucleated RBC % APTT (26.0-36.3) seconds D-Dimer, Quantitative (Less Than 230) ng/mL Sodium (135-145) mmol/L Potassium (3.5-5.0) mmol/L Chloride (101-111) mmol/L Carbon Dioxide (22-32) mmol/L Anion Gap (2-11) mmol/L BUN (6-24) mg/dL Creatinine (0.67-1.17) mg/dL Est GFR ( Amer) (>60) Est GFR (Non-Af Amer) (>60) BUN/Creatinine Ratio (8-20) Glucose (70-100) mg/dL Lactic Acid (0.5-2.0) mmol/L Calcium (8.6-10.3) mg/dL Total Bilirubin (0.2-1.0) mg/dL AST (13-39) U/L ALT (7-52) U/L Alkaline Phosphatase (34-104) U/L Troponin I (<0.04) ng/mL B-Natriuretic Peptide (<=100) pg/mL Total Protein (6.4-8.9) g/dL Albumin (3.2-5.2) g/dL Globulin (2-4) g/dL Albumin/Globulin Ratio (1-3) TSH (0.34-5.60) mcIU/mL Free T4 (0.61-1.12) ng/dL Urine Color [place] Urine Appearance Clear Urine pH 7.0 (5-9) Ur Specific [place] 1.019 (1.010-1.030) Urine Protein Negative (Negative) Urine Ketones Negative (Negative) Urine Blood Negative (Negative) Urine Nitrate Negative (Negative) Urine Bilirubin Negative (Negative) Urine Urobilinogen Negative (Negative) Ur Leukocyte Esterase Negative (Negative) Urine Glucose Negative (Negative) Assess/Plan/Problems-Billing Assessment: 57 year old male admitted for chest pain ACS rule out - Patient Problems (1) Chest pain Current Visit: Yes Status: Acute Code(s): R07.9 - CHEST PAIN, UNSPECIFIED SNOMED Code(s): 49868931 Comment: - Admit to tele. Trop negative - echo 03/10/18 EF 65%. no valvular disease - Nuclear stress test n am - Cardiology consult noted (2) Palpitations Current Visit: Yes Status: Acute Code(s): R00.2 - PALPITATIONS SNOMED Code (s): 78526579 Comment: - Will obtain nuclear stress test - cardiology note appreciated - EKG confirms sinus rhythm tacchycardia at times (3) Hyperlipidemia Current Visit: Yes Status: Acute Code(s): E78.5 - HYPERLIPIDEMIA, UNSPECIFIED SNOMED Code(s): 49979505 Comment: Will start lipitor 20 with LDL of 144 (4) Hypertension Current Visit: Yes Status: Acute Code(s): I10 - ESSENTIAL (PRIMARY) HYPERTENSION SNOMED Code(s): 70888807 Comment: - Continue amlodipine 2.5 mg daily, and lisinopril 10 mg daily (5) DVT prophylaxis Current Visit: Yes Status: Acute Code(s): NSP0907 - SNOMED Code(s): 912507900 Comment: Heparin SQ
[2018-03-10] MEDS: Atorvastatin* 20 MG TAB PO SCH (21:57)
[2018-03-11] MEDS: Heparin VIAL(*) 5000 UNITS/ML VIAL (FIVE THOUSAND) SUBCUT SCH (07:26)
[2018-03-11] MEDS: Lisinopril TAB* 10 MG PO SCH (11:11)
[2018-03-11] MEDS: amLODIPine TAB* 5 MG PO SCH (11:12)
[2018-03-11] MEDS: Aspirin EC TAB* 81 MG TAB.EC PO SCH (11:13)
[2018-03-11] MEDS: Tamsulosin CAP* 0.4 MG PO SCH (11:13)
[2018-03-11 14:30] VITALS: BP 125/85
--- NOTE | 2018-03-11 16:20 | DS ---
DATE OF ADMISSION: 03/08/2018. DATE OF DISCHARGE: 03/11/2018. PRIMARY CARE PHYSICIAN: Dr. Bozena Morgan. ATTENDING PHYSICIAN: Dr. Hattie Barajas * (dictated by MELA Ham). PRIMARY DIAGNOSIS: Tachycardia, palpations. SECONDARY DIAGNOSES: Hypertension, BPH, hyperlipidemia. STUDIES DONE WHILE IN THE HOSPITAL: 1. Chest x-ray, 03/08/2018: Impression: No acute cardiopulmonary disease. 2. Transthoracic echocardiogram, 03/08/2018: Conclusion: The left ventricular chamber size is normal. The estimated ejection fraction is 60 to 65 percent. No significant valvular disease. 3. Nuclear Medicine stress test, 03/11/2018: Impression: Small reversible hypoperfusion of the distal lateral wall towards the apex suggestive of a small area of ischemia. Assessment: Low risk based on imaging criteria from ACC/AHA 2002. Guideline Update for the Management of Patients with Chronic Stable Angina, table 23. Noninvasive Risk Stratification. DISCHARGE MEDICATIONS: Home medications: 1. Amlodipine 5 mg p.o. daily. 2. Tamsulosin 0.4 mg p.o. daily. 3. Lisinopril 10 mg p.o. daily. New home medications: 1. Metoprolol Tartrate 25 mg p.o. b.i.d. 2. Atorvastatin 20 mg p.o. at bedtime. 3. Aspirin 81 mg p.o. daily. HOSPITAL COURSE/HISTORY OF PRESENT ILLNESS: Mr. Mora is a 57-year-old male with a past medical history of hypertension, hyperlipidemia, and BPH who presented to the ER on March 08 with complaints of heart palpitations, sweating, presyncope, slight chest tightness, and shortness of breath. He had had a similar episode approximately approximately 1 week ago when he was walking. 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 He was admitted to the hospital to determine the cause of the palpations. An echo was performed which revealed a normal ejection fraction, normal left ventricular chamber size, and no valvular abnormality. Myocardial infarction was ruled out with negative troponins x3. D-dimer was less than 200. Echocardiogram revealed normal EF, normal LV size, and no valvular abnormalities. Cardiology was consulted and suggested a nuclear Myoview stress rest which was performed on Sunday morning. They suggested a heart-healthy, low fat, low salt diet with avoidance of alcohol and caffeinated drinks and stimulants. They suggested increased physical activity and weight loss. Nuclear Medicine stress test was relatively normal with a small reversible hypoperfusion of the distal lateral wall. Cardiology then recommended Metoprolol 25 mg b.i.d. and follow-up with Dr. Morton. The patient denies chest pain, chest tightness, shortness of breath, diaphoresis , calf pain, and swelling in the lower extremities. He states that he is not feeling any palpations, although he does notice that his heart rate is elevated at times. At this time, the patient is stable for discharge. He showed no structural abnormality, nor areas of ischemia. Vital signs are temperature 98.7 temporal, heart rate 82, respiratory rate 18, oxygen saturation 99 on room air, and blood pressure 136/82. PHYSICAL EXAMINATION: General: Mr. Mora is a well-developed, well-nourished , middle-aged, white male who is sitting up in bed in no acute distress. He appears his stated age. He appears comfortable. HEENT: Visual nix grossly intact. Pupils equally round and reactive to light and accommodation. Extraocular movements intact. Sclerae without icterus. Hearing grossly intact. Oral mucus membranes moist. Tongue is midline. Neck: Full range of motion. Thyroid not palpable. Trachea midline. No lymphadenopathy. Nontender to palpation. Respiratory: Symmetrical chest expansion. No use of accessory muscles. Lungs are clear to auscultation. No rhonchi, wheezes, or rubs. Cardiovascular: Regular rate and rhythm, non-tachycardic at the moment. S1, S2 present. No murmurs, rubs, or gallops. No JVD. Abdomen: Bowel sounds in all four quadrants. Soft and nontender to palpation. No bruits appreciated. No hepatosplenomegaly. Musculoskeletal: Full range of motion, no pain or deformities. Extremities: Skin warm and smooth bilaterally, no edema, no clubbing or cyanosis. Radial and pedal pulses 2+ bilaterally. Neuro: Alert and oriented times three. Moves all extremities. Steady gait. No impairments. Skin: Grossly intact without lesions. DISCHARGE PLAN: Mr. Mora will be discharged to home. Medications as above. ACTIVITY: As tolerated. DIET: Heart-healthy, low salt, low fat. No alcohol, caffeine, or stimulants. FOLLOW-UP: Follow-up with primary care provider in four to seven days. Follow-up with Dr. Morton within a week. EDUCATION: Increase exercise and weight loss. Do not return to work until cleared by Cardiology. Return to the ER or nearest hospital if symptoms return or persist or worsen, or if your experience any of the following: Shortness of breath, lightheadedness, dizziness, chest discomfort, high fevers, chills, night sweats , loss of conscious, or any other worrisome sign or symptom. This is a summarized report of a complex medical history and hospital stay. For further details, please see the entire medical record. TIME SPENT: Approximately 45 minutes were spent on this discharge, greater than half of that time was spent [id number] with the patient discussing discharge plans and instructions. MELA DE LUNA [id number]/CPS #: [id number] MTDKeith
== END 2018-03-11 14:22 | disposition home or self-care (01) ==
LOC: ED 14:29 → MEDTELE 17:06
PROVIDERS: ADMIT Internal Medicine; ATTEND Internal Medicine
DX: R00.0 Tachycardia, unspecified (principal); R00.1 Bradycardia, unspecified; I10 Essential (primary) hypertension; N40.0 Benign prostatic hyperplasia without lower urinary tract symptoms; E78.5 Hyperlipidemia, unspecified; Z79.82 Long term (current) use of aspirin; R55 Syncope and collapse; R42 Dizziness and giddiness; R53.83 Other fatigue; Z87.891 Personal history of nicotine dependence; I25.2 Old myocardial infarction
CPT/HCPCS: 36415; 71045; 78452; 80048; 80053; 80061; 81003; 83036; 83605; 83735; 83880; 84439; 84443; 84484; 85025; 85379; 85610; 85730; 93005; 93017; 93306; 96372; 96374; 96375; 99284; A9270-GY; A9502; G0378; J1644

== ENCOUNTER 2018-04-25 22:20 | Emergency (ER) | payer BC ==
[2018-04-26 00:20] LABS: ABS Basophils 0 10^3/ul (0-0.2); ABS Eosinophils 0.2 10^3/ul (0-0.6); ABS Lymphocytes 1.4 10^3/ul (1.0-4.8); ABS Nucleated RBC 0 10^3/ul; Eosinophil % 1.8 %; Hematocrit 44 % (42-52); Mean Corpuscular HGB Conc 34 g/dl (31-36); Mean Corpuscular Hemoglobin 30 pg (27-31); Mean Corpuscular Volume 87 fL (80-94); Mean Platelet Volume 8.8 fL (7.4-10.4); Nucleated Red Blood Cells % 0; Platelet Count 238 10^3/ul (150-450); Red Blood Count 5.08 10^6/ul (4.00-5.40); Red Cell Distribution Width 14 % (10.5-15); White Blood Count 8.6 10^3/ul (3.5-10.8)
[2018-04-26 00:37] LABS: Albumin 4.1 g/dL (3.2-5.2); Albumin/Globulin Ratio 1.4 (1-3); BUN/Creatinine Ratio 25.6 (8-20); Calcium 9.2 mg/dL (8.6-10.3); EGFR African American 105.2 (>60); Globulin 2.9 g/dL (2-4); Potassium 3.7 mmol/L (3.5-5.0); Total Bilirubin 0.3 mg/dL (0.2-1.0)
[2018-04-26 00:38] LABS: Troponin I 0.01 ng/mL (<0.04)
[2018-04-26 00:59] LABS: TSH (Thyroid Stimulating Horm) 1.51 mcIU/mL (0.34-5.60)
[2018-04-26 01:14] LABS: Magnesium 2.2 mg/dL (1.9-2.7)
--- NOTE | 2018-04-26 01:44 | ED ---
Palpitations / Dysrhythmia - HPI Summary HPI Summary: 57-year-old male presents with palpitations today. He states that it resolved two hours ago. He states that last 2 hours. He states he had a Holter monitor last month and that he does not believe that they found anything. He states he has history of palpitations for the past couple months but they dont normally last this long. He states he is on metoprolol to try control the palpitations but does not seem to be working. Has a follow-up with cardiology on Sunday. He denies any chest pain or shortness of breath. he denies any dizziness. He states that the palpitations feel like a flutter in his chest. He was admitted a couple months ago and had a normal stress test done. He states that he has cut down on salt and is not using any caffeine. He denies any drug use. - History of Current Complaint Chief Complaint: EDDysrhythmPalp Time Seen by Provider: 04/26/18 00:04 - Allergy/Home Medications Allergies/Adverse Reactions: Allergies Allergy/AdvReac Type Severity Reaction Status Date / Time No Known Allergies Allergy Verified 04/23/16 13:58 PMH/Surg Hx/FS Hx/Imm Hx Endocrine/Hematology History: Reports: Other Endocrine/Hematological Disorders - Negative Hypercholesteremia Denies: Hx Diabetes Cardiovascular History: Reports: Hx Angina, Hx Hypertension Denies: Hx Myocardial Infarction Respiratory History: Denies: Hx Asthma, Hx Chronic Bronchitis, Hx Lung Cancer, Hx Pulmonary Edema , Hx Seasonal Allergies GI History: Denies: Hx Cirrhosis, Hx Crohn's Disease, Hx Diverticulosis, Hx Gall Bladder Disease, Hx Gastroesophageal Reflux Disease, Hx Gastrointestinal Bleed, Hx Hiatal Hernia, Hx Jaundice, Hx Obstructive Bowel, Hx Ileostomy, Hx Pyloric Stenosis, Hx Ulcer Sensory History: Reports: Hx Contacts or Glasses Denies: Hx Cataracts, Hx Eye Injury, Hx Legally Blind, Hx Deafness, Hx Hearing Aid, Hx Hearing Problem Opthamlomology History: Reports: Hx Contacts or Glasses Denies: Hx Cataracts, Hx Eye Injury, Hx Legally Blind - Surgical History Surgery Procedure, Year, and Place: sebaceous cysts removed Infectious Disease History: No Infectious Disease History: Denies: Hx Clostridium Difficile, Hx Hepatitis, Hx of Known/Suspected MRSA, Hx Shingles, Hx Tuberculosis, History Other Infectious Disease, Traveled Outside the [place] in Last 30 Days - Family History Known Family History: Positive: Cardiac Disease, Hypertension - Social History Alcohol Use: Rare Substance Use Type: Reports: None Smoking Status (MU): Former Smoker Review of Systems Negative: Fever Positive: Palpitations. Negative: Chest Pain Negative: Shortness Of Breath, Cough All Other Systems Reviewed And Are Negative: Yes Physical Exam Triage Information Reviewed: Yes Vital Signs On Initial Exam: Initial Vitals Temp Pulse Resp BP Pulse Ox 98.6 F 84 14 132/88 99 04/25/18 22:29 04/25/18 22:29 04/25/18 22:29 04/25/18 22:29 04/25/18 22:29 Vital Signs Reviewed: Yes Appearance: Positive: Well-Appearing Skin: Positive: Warm, Dry Head/Face: Positive: Normal Head/Face Inspection Eyes: Positive: Normal, EOMI, CINDY, Conjunctiva Clear ENT: Positive: Normal ENT inspection, Pharynx normal, TMs normal Respiratory/Lung Sounds: Positive: Clear to Auscultation, Breath Sounds Present Cardiovascular: Positive: Normal, RRR Abdomen Description: Positive: Nontender, Soft Bowel Sounds: Positive: Present Musculoskeletal: Positive: Normal Neurological: Positive: Normal Psychiatric: Positive: Normal Diagnostics - Vital Signs Vital Signs Temp Pulse Resp BP Pulse Ox 04/25/18 22:29 98.6 F 84 14 132/88 99 - Laboratory Lab Results: Lab Results 04/26/18 04/26/18 04/26/18 Range/Units 00:07 00:07 00:07 WBC 8.6 (3.5-10.8) 10^3/ul RBC 5.08 (4.00-5.40) 10^6/ul Hgb 15.0 (14.0-18.0) g/dl Hct 44 (42-52) % MCV 87 (80-94) fL MCH 30 (27-31) pg MCHC 34 (31-36) g/dl RDW 14 (10.5-15) % Plt Count 238 (150-450) 10^3/ul MPV 8.8 (7.4-10.4) fL Neut % (Auto) 70.3 % Lymph % (Auto) 16.0 % [place] % (Auto) 11.5 % Eos % (Auto) 1.8 % Baso % (Auto) 0.4 % Absolute Neuts (auto) 6.0 (1.5-7.7) 10^3/ul Absolute Lymphs (auto) 1.4 (1.0-4.8) 10^3/ul Absolute Monos (auto) 1.0 H (0-0.8) 10^3/ul Absolute Eos (auto) 0.2 (0-0.6) 10^3/ul Absolute Basos (auto) 0 (0-0.2) 10^3/ul Absolute Nucleated RBC 0 10^3/ul Nucleated RBC % 0 D-Dimer, Quantitative (Less Than 230) ng/mL Sodium 137 (135-145) mmol/L Potassium 3.7 (3.5-5.0) mmol/L Chloride 104 (101-111) mmol/L Carbon Dioxide 27 (22-32) mmol/L Anion Gap 6 (2-11) mmol/L BUN 23 (6-24) mg/dL Creatinine 0.90 (0.67-1.17) mg/dL Est GFR ( Amer) 105.2 (>60) Est GFR (Non-Af Amer) 87.0 (>60) BUN/Creatinine Ratio 25.6 H (8-20) Glucose 110 H (70-100) mg/dL Lactic Acid 0.6 (0.5-2.0) mmol/L Calcium 9.2 (8.6-10.3) mg/dL Magnesium 2.2 (1.9-2.7) mg/dL Total Bilirubin 0.30 (0.2-1.0) mg/dL AST 18 (13-39) U/L ALT 25 (7-52) U/L Alkaline Phosphatase 63 (34-104) U/L Troponin I 0.01 (<0.04) ng/mL Total Protein 7.0 (6.4-8.9) g/dL Albumin 4.1 (3.2-5.2) g/dL Globulin 2.9 (2-4) g/dL Albumin/Globulin Ratio 1.4 (1-3) TSH 1.51 (0.34-5.60) mcIU/mL 04/26/18 Range/Units 01:16 WBC (3.5-10.8) 10^3/ul RBC (4.00-5.40) 10^6/ul Hgb (14.0-18.0) g/dl Hct (42-52) % MCV (80-94) fL MCH (27-31) pg MCHC (31-36) g/dl RDW (10.5-15) % Plt Count (150-450) 10^3/ul MPV (7.4-10.4) fL Neut % (Auto) % Lymph % (Auto) % [place] % (Auto) % Eos % (Auto) % Baso % (Auto) % Absolute Neuts (auto) (1.5-7.7) 10^3/ul Absolute Lymphs (auto) (1.0-4.8) 10^3/ul Absolute Monos (auto) (0-0.8) 10^3/ul Absolute Eos (auto) (0-0.6) 10^3/ul Absolute Basos (auto) (0-0.2) 10^3/ul Absolute Nucleated RBC 10^3/ul Nucleated RBC % D-Dimer, Quantitative < 200 (Less Than 230) ng/mL Sodium (135-145) mmol/L Potassium (3.5-5.0) mmol/L Chloride (101-111) mmol/L Carbon Dioxide (22-32) mmol/L Anion Gap (2-11) mmol/L BUN (6-24) mg/dL Creatinine (0.67-1.17) mg/dL Est GFR ( Amer) (>60) Est GFR (Non-Af Amer) (>60) BUN/Creatinine Ratio (8-20) Glucose (70-100) mg/dL Lactic Acid (0.5-2.0) mmol/L Calcium (8.6-10.3) mg/dL Magnesium (1.9-2.7) mg/dL Total Bilirubin (0.2-1.0) mg/dL AST (13-39) U/L ALT (7-52) U/L Alkaline Phosphatase (34-104) U/L Troponin I (<0.04) ng/mL Total Protein (6.4-8.9) g/dL Albumin (3.2-5.2) g/dL Globulin (2-4) g/dL Albumin/Globulin Ratio (1-3) TSH (0.34-5.60) mcIU/mL Result Diagrams: 04/26/18 00:07 04/26/18 00:07 Lab Statement: Any lab studies that have been ordered have been reviewed, and results considered in the medical decision making process. - Radiology chest Radiology Interpretation Completed By: ED Physician Summary of Radiographic Findings: no active disease - EKG No standard instances Cardiac Rate: NL EKG Rhythm: Sinus Rhythm Summary of EKG Findings: sinus rhythm, early repolization Course/Dx - Course Course Of Treatment: 57-year-old male presents with palpitations today. He states that it resolved two hours ago. He states that last 2 hours. He states he had a Holter monitor last month and that he does not believe that they found anything. He states he has history of palpitations for the past couple months but they dont normally last this long. He states he is on metoprolol to try control the palpitations but does not seem to be working. Has a follow-up with cardiology on Sunday. He denies any chest pain or shortness of breath. he denies any dizziness. He states that the palpitations feel like a flutter in his chest. He was admitted a couple months ago and had a normal stress test done. He states that he has cut down on salt and is not using any caffeine. He denies any drug use. On exam patient is in sinus rhythm with heart rate 68. Lungs clear auscultation. EKG shows sinus rhythm with PACs. Troponin is 0. D-dimer negative. electrolytes normal. Strips from EMS show sinus tach. Discussed needs follow-up with cardiac as may need loop recorder. Patient understands agrees with plan. - Diagnoses Provider Diagnoses: Palpitations Discharge - Sign-Out/Discharge Documenting (check all that apply): Patient Departure Patient Received Moderate/Deep Sedation with Procedure: No - Discharge Plan Condition: Good Disposition: HOME Patient Education Materials: Heart Palpitations (ED) Referrals: Bozena Morgan MD [Primary Care Provider] - Additional Instructions: Follow up with computer installer Drink plenty of fluids avoid caffeine Return to ED if develop any new or worsening symptoms - Billing Disposition and Condition Condition: GOOD Disposition: Home
[2018-04-26 01:55] VITALS: BP 125/86
== END 2018-04-26 01:51 | disposition home or self-care (01) ==
LOC: ED 22:20
DX: R00.2 Palpitations (principal); I20.9 Angina pectoris, unspecified; I10 Essential (primary) hypertension; Z82.49 Family history of ischemic heart disease and other diseases of the circulatory system; Z87.891 Personal history of nicotine dependence
CPT/HCPCS: 36415; 71046; 80053; 83605; 83735; 84443; 84484; 85025; 85379; 93005; 99284

== ENCOUNTER 2021-10-17 07:09 | Observation (INO) ==
[~2021-10-17 07:09] MED LIST changes: +Buffered Lidocaine 1% SYRIN 1 ml INTRADERM ONE; +HYDROcodone/ACETAMIN 5/325 mg TAB PO PRN; -Ketorolac INJ* 60 MG/2 ML VIAL IM ONE; +Lactated Ringers 1000 ml BAG 1,000 ML IV SCH; +Metoclopramide 5 MG/ML VIAL (10 mg) IV PRN; +Naloxone 0.4 mg VIAL 0.4 mg/ml 1 ml VIAL IV PRN; +Ondansetron 4 mg VIAL 2 MG/ML 2 ml VIAL IV PRN
[2021-10-17] MEDS ORDERED: cefTRIAXone 2 gm/50 mL D5W 2 GM/50 ML BAG IV ONE (07:23)
[2021-10-17] MEDS ORDERED: Propofol 10 MG/ML 20 ML BTL ONE ×2 (08:03→10:20)
[2021-10-17] MEDS ORDERED: Lidocaine 2% PF 5 ML VIAL ONE (08:03)
[2021-10-17] MEDS ORDERED: fentaNYL 250 mcg/5 ml 50 MCG/ML 5 ml VIAL (250 MCG) ONE (08:03)
[2021-10-17] MEDS ORDERED: Phenylephrine 40 mcg/mL 10mL (400mcg) SYRINGE ONE (10:01)
[2021-10-17] MEDS ORDERED: Dexamethasone IV 4 MG/ML VIAL 1 ml VIAL ONE (10:06)
[2021-10-17] MEDS ORDERED: Ondansetron 4 mg VIAL 2 MG/ML 2 ml VIAL ONE (10:06)
[2021-10-17] MEDS ORDERED: Lidocaine 2% JELLY 6 ML Topical TOPICAL ONE (10:46)
[2021-10-17] MEDS ORDERED: fentaNYL 100 mcg/2 ml 50 MCG/ML VIAL ONE ×2 (11:00→12:21)
[2021-10-17] MEDS: fentaNYL 100 mcg/2 ml 50 MCG/ML VIAL IV PRN ×5 (11:03→12:26)
[2021-10-17] MEDS ORDERED: oxyCODONE/Acetamin 5/325 mg TAB ONE (11:19)
[2021-10-17] MEDS ORDERED: Lidocaine 2% JELLY 6 ML Topical TOPICAL PRN (14:55)
[2021-10-17] MEDS: NS 0.9% 1,000 ML IV SCH ×2 (15:00→20:55)
[2021-10-17] MEDS: oxyCODONE/Acetamin 5/325 mg TAB PO PRN ×2 (15:00→20:56)
[2021-10-18] MEDS: oxyCODONE/Acetamin 5/325 mg TAB PO PRN ×2 (03:10→09:14)
[2021-10-18] MEDS: NS 0.9% 1,000 ML IV SCH (05:58)
[2021-10-18] MEDS ORDERED: cefTRIAXone 1 gm/50 mL D5W 1 GM/50 ML BAG IV SCH (08:00)
[2021-10-18] MEDS ORDERED: NS 0.9% 1,000 ML IV SCH (08:00)
[2021-10-18 11:44] VITALS: BP 115/73
== END 2021-10-18 12:50 | disposition home or self-care (01) ==
LOC: OR 07:09 → INTOOBSV 13:28 → SSU 13:28
PROVIDERS: ADMIT Urology; ATTEND Urology